=== PATIENT | male | born 1990 | race Caucasian/White ===

== ENCOUNTER 2023-02-18 10:10 | Emergency (ER) | payer OTHER ==
[2023-02-18 10:17] VITALS: BMI 30.1
[2023-02-18] MEDS ORDERED: diazePAM CARPU-JECT 10 MG/2 ML DISP.SYRIN IVPUSH ONE (10:31)
[2023-02-18] MEDS ORDERED: diazePAM CARPU-JECT 10 MG/2 ML DISP.SYRIN ONE (10:41)
[2023-02-18 10:53] LABS: BASO % 0.3 % (0-2.0); EOS % 1.7 % (0-4.5); HEMOGLOBIN 15.9 GM/dL (11.7-16.9); LYMPH % 24.7 % (8-40); MCH 28.6 pg (25.7-33.7); MCHC 34.5 g/dl (32.0-35.9); MEAN CELL VOLUME 82.7 fl (80-96); MEAN PLT VOLUME 9.1 fl (7.5-11.1); MONO % 7.9 % (3.8-10.2); NEUT % 65.4 % (42.8-82.8); PLATELET COUNT 171 10^3/uL (134-434); RBC 5.57 M/mm3 (4.00-5.60); RDW 13.5 % (11.9-15.9); WHITE BLOOD COUNT 8.8 K/mm3 (4.0-10.0)
[2023-02-18 11:15] LABS: CALCIUM 9.8 mg/dL (8.5-10.1); POTASSIUM 3.6 mmol/L (3.5-5.1)
[2023-02-18 11:16] LABS: ALBUMIN 4.2 g/dl (3.4-5.0)
[2023-02-18 11:17] LABS: BLOOD UREA NITROGEN 13.9 mg/dL (7-18)
[2023-02-18 11:20] LABS: CREATININE 0.9 mg/dL (0.55-1.3)
[2023-02-18 11:22] LABS: BILIRUBIN,TOTAL 0.6 mg/dL (0.2-1)
[2023-02-18 13:29] VITALS: RESP 16; TEMP 98
[2023-02-18 16:00] VITALS: BP 147/96; PULSE 82
== END 2023-02-18 16:00 | disposition home or self-care (01) ==
LOC: JER 10:10
PROC: 3E033NZ Introduction of Analgesics, Hypnotics, Sedatives into Peripheral Vein, Percutaneous Approach (ICD-10-PCS; principal; 2023-02-18)
DX: I10 Essential (primary) hypertension (principal); T50.995A Adverse effect of other drugs, medicaments and biological substances, initial encounter
CPT/HCPCS: 36415; 70450-TC; 80053; 82962; 84443; 84484; 85025; 93005; 93010; 99285-25

== ENCOUNTER 2023-03-04 16:37 | Emergency (ER) | payer OTHER ==
[2023-03-04 16:43] VITALS: BP 144/96; PULSE 83; RESP 18; TEMP 98; BMI 31.5
== END 2023-03-04 18:15 | disposition home or self-care (01) ==
LOC: JER 16:37
DX: I10 Essential (primary) hypertension (principal); R20.2 Paresthesia of skin
CPT/HCPCS: 93005; 93010; 99283-25

== ENCOUNTER 2024-05-02 14:44 | Emergency (ER) | payer OTHER ==
[2024-05-02 15:01] VITALS: BP 137/82; PULSE 104; RESP 16; TEMP 102.1; BMI 31.5
[2024-05-02] MEDS ORDERED: KETOROLAC TROMETHAMINE 30 MG/1 ML VIAL ONE (15:42)
[2024-05-02] MEDS ORDERED: ACETAMINOPHEN 500 MG TABLET (FP) ONE (15:42)
[2024-05-02 15:47] LABS: EPI CELLS 9 /uL (0-25.1); HYALINE CASTS 0 /uL (0-3.1); PH,URINE 6.5 (5.0-8.0); URINE APPEARANCE CLEAR; URINE BACTERIA 47 /uL (0-1359); URINE BILIRUBIN NEGATIVE (NEGATIVE); URINE COLOR YELLOW; URINE GLUCOSE (UA) NEGATIVE (NEGATIVE); URINE KETONE TRACE (NEGATIVE); URINE LEUK ESTERASE NEGATIVE (NEGATIVE); URINE NITRITE NEGATIVE (NEGATIVE); URINE PROTEIN 1+ (NEGATIVE); URINE RBC 563 /uL (0-23.9); URINE UROBILINOGEN 0.2 mg/dL (0.2-1.0); URINE WBC 12 /uL (0-25.8)
[2024-05-02] MEDS: ACETAMINOPHEN 500 MG TABLET (FP) PO ONE (15:52)
[2024-05-02] MEDS: KETOROLAC TROMETHAMINE 30 MG/1 ML VIAL IM ONE (15:52)
[2024-05-02] MEDS ORDERED: SULFAMETHOXAZOLE/TRIMETHOPRIM 800MG/160MG D.S. TABLET ONE (16:49)
[2024-05-02] MEDS: SULFAMETHOXAZOLE/TRIMETHOPRIM 800MG/160MG D.S. TABLET PO ONE (16:51)
== END 2024-05-02 16:58 | disposition home or self-care (01) ==
LOC: JERFT 14:44
PROC: 3E0233Z Introduction of Anti-inflammatory into Muscle, Percutaneous Approach (ICD-10-PCS; principal; 2024-05-02)
DX: R50.9 Fever, unspecified (principal); M79.10 Myalgia, unspecified site; N39.0 Urinary tract infection, site not specified; Z20.822 Contact with and (suspected) exposure to COVID-19
CPT/HCPCS: 0241U-QW; 81003; 87086; 99284-25